=== PATIENT | female | born 2000 | race African-American/Black ===

== ENCOUNTER 2020-08-23 09:07 | Outpatient (REF) | payer OTHER, SELFPAY ==
[2020-08-23 17:59] LABS: CT PCR NOT DETECTED (Not Detect.); NG PCR NOT DETECTED (Not Detect.)
[2020-08-24 09:18] LABS: BV Int Neg Control Negative (Negative); BV Int Pos Control Positive (Positive)
[2020-08-31 03:32] LABS: HPV 16 RNA NOT DETECTED (NOT DETECTED); HPV mRNA E6/E7 rflx Detected (Not Detected)
== END 2020-08-23 09:08 | disposition home or self-care (01) ==
LOC: HO.LAB 09:07
PROVIDERS: Visit Provider Advanced Practice Midwife
DX: Z01.419 Encounter for gynecological examination (general) (routine) without abnormal findings (principal); Z11.51 Encounter for screening for human papillomavirus (HPV); Z11.3 Encounter for screening for infections with a predominantly sexual mode of transmission; R10.2 Pelvic and perineal pain
CPT/HCPCS: 87480; 87491; 87510; 87591; 87624; 87625; 87660; 88141; 88142

== ENCOUNTER 2021-08-27 09:03 | Outpatient (REF) | payer MEDICAID, SELFPAY ==
[2021-08-27 15:34] LABS: CT PCR NOT DETECTED (Not Detect.); NG PCR NOT DETECTED (Not Detect.)
== END 2021-08-27 09:04 | disposition home or self-care (01) ==
LOC: HO.LAB 09:03
PROVIDERS: Visit Provider Advanced Practice Midwife
DX: Z01.419 Encounter for gynecological examination (general) (routine) without abnormal findings (principal); R87.610 Atypical squamous cells of undetermined significance on cytologic smear of cervix (ASC-US); R87.810 Cervical high risk human papillomavirus (HPV) DNA test positive; Z11.59 Encounter for screening for other viral diseases; Z11.4 Encounter for screening for human immunodeficiency virus [HIV]; Z11.3 Encounter for screening for infections with a predominantly sexual mode of transmission; Z11.8 Encounter for screening for other infectious and parasitic diseases; Z97.5 Presence of (intrauterine) contraceptive device; Z80.3 Family history of malignant neoplasm of breast
CPT/HCPCS: 87491; 87591; 88142

== ENCOUNTER 2022-03-07 09:41 | Emergency (ER) | payer OTHER, MEDICAID, SELFPAY ==
--- NOTE | ~2022-03-07 | CT_ITS ---
EXAMINATION: CT HEAD WITHOUT CONTRAST CLINICAL INFORMATION: Fall and head strike COMPARISON: None TECHNIQUE: Imaging was performed from the skull base to vertex without intravenous administration of contrast. This CT examination was performed using dose optimization techniques as appropriate, variously including the following: *Automated exposure control *Adjustment of mA and/or kV according to patient size (this includes techniques or standardized protocols for targeted exams where dose is matched to indication/reason for exam; i.e. extremities or head) *Use of iterative reconstruction technique Total exam dose length product: 623 mGy-cm FINDINGS: No intra or extra-axial fluid collection, hemorrhage, or mass. No ventriculomegaly. No midline shift or herniation. Basal cisterns are patent. King-white matter differentiation is maintained. No territorial encephalomalacia. No significant volume loss. There is no abnormal attenuation within the brain parenchyma. No calvarial fracture or soft tissue abnormality. Minimal mucosal thickening along the frontal sinus drainage pathways. Mastoid air cells are normally aerated. CT/CT head/brain wo IV con IMPRESSION: 1. No acute intracranial pathology.
[2022-03-07 11:24] VITALS: BP 127/76; PULSE 76; RESP 16; TEMP 36.6; O2SAT 100; BMI 25.7
[2022-03-07 15:27] VITALS: BP 127/76; PULSE 79; RESP 12; TEMP 36.4; O2SAT 99
[2022-03-07] MEDS: Lidocaine HCl 1 % 20 ML VIAL 6 ML SUBCUT (16:17)
--- NOTE | 2022-03-07 16:32 | ED_ITS ---
HPI - Wound/Laceration General Chief Complaint: Wound/Laceration Stated Complaint: Chin Lac Work Injury 03/07/22 Time Seen by Provider: 03/07/22 15:56 Source: patient Mode of arrival: ambulatory Limitations: no limitations History of Present Illness HPI narrative: 21-year-old female no significant medical history presents with work related injury causing a laceration to her chin, patient tells me she was at work she slipped on a wet dish room, fell hit her chin on a rack and sustained a lac to chin, when she fell she did hit her head however did not loose consciousness. Patient not on thinners. patient tells me she initially went to urgent care however they sent her here for further evaluation. Patient denies headache, vision changes, weakness, nausea, vomiting, changes in speech, chest pain, shortness of breath. Denies any pain to teeth. Denies weekly teeth. Up-to-date on tetanus shot Related Data Home Medications Medication Instructions Recorded Confirmed levonorgestrel 20 mcg/24 hours (8 intrauterine 08/23/20 yrs) 52 mg intrauterine device (Mirena) Allergies Allergy/AdvReac Type Severity Reaction Status Date / Time No Known Allergies Allergy Verified 03/07/22 08:36 Review of Systems Review of Systems: Constitutional : No Fever, No Chills, Cardiovascular : No Chest Pain, No SOB Respiratory : No Dyspnea Gastrointestinal : No abdominal pain Musculoskeletal : No Joint Swelling Skin : No rash, positive skin laceration Neuro : No Weakness, No Numbness Psych : No SI/HI Yes all other systems are reviewed and are negative PMFSH Past Medical History Attestation statement: The following information was validated with the patient. Source: old records reviewed and nursing notes reviewed Family History Family History Mother History of breast cancer Sister History of breast cancer Social History Social History Alcohol intake: current Alcohol intake frequency: holidays/special occasions only Patient Tobacco Use Status: Never used Tobacco Substance Use Type: Marijuana Advance Directives: No Advance Directives Information Provided: No Sexual orientation: Straight/Heterosexual Gender identity: Female Physical Exam Vital Signs: Vital Signs: Last Vital Signs Temp 97.6 F 03/07/22 15:27 Pulse 79 03/07/22 15:27 Resp 12 03/07/22 15:27 BP 127/76 03/07/22 15:27 Pulse Ox 99 03/07/22 15:27 O2 Del Method 03/07/22 15:27 BMI result Body Mass Index 25.7 vss Appearance: Alert.? Oriented X3.? No acute distress.? Head: Normocephalic, atraumatic, no step-offs or deformities Eyes: Pupils equal, round and reactive to light.? ENT: Pharynx normal.? All teeth intact, no loose teeth. Neck: Normal inspection.? Neck supple.? CVS: Normal heart rate and rhythm.? Pulses normal.? Respiratory: No respiratory distress.? Breath sounds normal.? Abdomen: Soft and nontender.? Skin: Skin warm and dry.? Normal skin color.? Normal skin turgor.?+ Small 4 cm triangular shaped laceration just below the chin. No signs of foreign body within. Extremities: No lower extremity edema.? No calf ttp. 5/5 strength to bilateral upper and lower extremities Neuro: Oriented X 3.? No motor deficit.? No sensory deficit. CN 2-12 intact . Normal [id number], [id number], steady tandem gait with normal coordination. Course Reevaluation(s) Reevaluation #1: Successfully sutured chin lack using 3, 5-0 non dissolvable sutures, patient tolerated procedure well. Educated on proper care for sutures, and when to return. CT of the head pending Time: 16:37 Reevaluation #2: Head CT is no acute findings. At this time educated patient on concussion/ postconcussive syndrome, educated worrisome signs and symptoms on discharge. I feel comfortable discharge home. Time: 17:18 MDM - Wound/Laceration [facility] Narrative Medical decision making narrative: 1630 21-year-old female presents with chin laceration status post slip and fall at work, she does report positive head strike however no loss of consciousness. Not on blood thinners. Physical examination with a small 4 cm triangular shaped laceration to chin. Neuro nonfocal, cerebellar intact. Regular rate and rhythm. Lungs clear. Abdomen soft nontender nondistended. Plan at this time is to obtain a head CT to rule out intracranial hemorrhage although unlikely as patient has a nonfocal neuro exam normal cerebellar exam. Will a suture the site. Medical Records Attestation: I reviewed the patient's medical records. Lab Data Attestation: I reviewed the patient's lab results. Procedures Laceration Laceration 1: Site: other ( chin laceration) Size (cm): 4 Description: other ( triangular shaped) Depth: simple, single layer Local Anesthetic: lidocaine 1% Amount of anesthesia used (mL): 6 Pre-repair: wound explored, irrigated extensively and deep structures intact Skin layer closed with: vicryl Size (cm): 5-0 Number of sutures: 3 Technique: simple, interrupted Critical Care Time Critical Care Time Critical Care Time: No Discharge Plan Discharge Clinical Impression: Laceration, Work related injury, Concussion Patient Disposition: Home, Self-Care Instructions: Concussion (ED), Post Concussion Syndrome (ED) Additional Instructions: Take your medications as prescribed. If you were prescribed antibiotics today, it is important that you take your medication to their entirety, do not skip any doses, do not finish them early. Follow-up with your primary care provider this week. Return to the emergency department with new or worsening symptoms. Such as fevers, chills, chest pain, shortness of breath, nausea, vomiting, dizziness, headache, vision changes, lethargy In case of emergency call 911 Return in 5 days for suture removal. Return if you notice swelling, discharge, bleeding or severe pain at the site. if you developed pain you can take ibuprofen every 6 hours, Tylenol every 4 as needed for pain or discomfort. CT/CT head/brain wo IV con IMPRESSION: 1. No acute intracranial pathology. ? Prescriptions: No Action Mirena 20 mcg/24 hours (6 yrs) 52 mg intrauterine device intrauterine Referrals: Physician,None [Primary Care Provider] - Stand Alone Forms: Work/School Release
== END 2022-03-07 17:26 | disposition home or self-care (01) ==
PROVIDERS: Emergency Provider Emergency Medicine
DX: S01.81XA Laceration without foreign body of other part of head, initial encounter (principal); S06.0XAA Concussion with loss of consciousness status unknown, initial encounter; R51.9 Headache, unspecified; W01.0XXA Fall on same level from slipping, tripping and stumbling without subsequent striking against object, initial encounter; Y93.9 Activity, unspecified; Y92.9 Unspecified place or not applicable; Y99.0 Civilian activity done for income or pay
CPT/HCPCS: 70450; 99282; 99284